=== PATIENT | female | born 1950 | race Caucasian/White ===

== ENCOUNTER 2018-06-14 22:08 | Emergency (ER) | payer BC ==
[2018-06-14] MEDS ORDERED: fentaNYL 100 MCG/2 ML INJ ONE (22:50)
[2018-06-14] MEDS ORDERED: fentaNYL 100 MCG/2 ML INJ NASAL ONE (22:55)
--- NOTE | 2018-06-14 23:05 | EDPHY ---
H & P Stated Complaint: LEFT WRIST, FALL WHILE DANCING - Personal History Current Tetanus/Diphtheria Vaccine: Yes - Medical/Surgical History Hx Asthma: Yes Hx Chronic Respiratory Disease: No Hx Diabetes: No Hx Cardiac Disease: No Hx Renal Disease: No Hx Cirrhosis: No Hx Alcoholism: No Hx HIV/AIDS: No Hx Splenectomy or Spleen Trauma: No Other PMH: MASTECTOMY/ BREAST CA, TUBAL LIG, CELIAC, COLLAR BONE FX, OSTEOPOROSIS - Social History Smoking Status: Never smoked Time Seen by Provider: 06/14/18 22:26 HPI/ROS: Chief complaint: Left wrist injury History of present illness: This is a 67-year-old female who presents to the emergency department for left wrist injury. She was dancing when she slipped and fell onto her wrist. Since then she has had pain, swelling and deformity to the wrist. She cannot move it secondary to pain. She is able to move the fingers although this causes pain. The rest the arm feels fine. She denies trauma to other parts of the body. No report of open wounds. No abnormal coolness or paresthesias. No other injuries reported. (Delvin Gordon) - Physical Exam Exam: General: Alert, nontoxic. Skin: No open wounds to the left upper extremity. Musculoskeletal: Obvious deformity to the left wrist. This area is tender to palpation. She can move the digits of the left hand although this causes pain. The rest of the left upper extremities unremarkable. Vascular: Radial pulse 2 +. Capillary refill brisk in all digits of the left hand. Neurologic: Sensation intact in the left hand. (Delvin Gordon) Constitutional: Initial Vital Signs Temperature (C) 36.7 C 06/14/18 22:12 Heart Rate 76 06/14/18 22:12 Respiratory Rate 18 06/14/18 22:12 Blood Pressure 115/68 06/14/18 22:12 O2 Sat (%) 97 06/14/18 22:12 O2 Delivery Mode Room Air Allergies/Adverse Reactions: aspirin Allergy (Verified 06/14/18 22:11) Penicillins Allergy (Verified 06/14/18 22:11) Home Medications: Medication Instructions Recorded Elderberry Fruit and Flower 06/14/18 Hydrocodone/APAP 5/325 [R[place] 1 tab PO Q6H #10 tab 06/15/18 5/325 (*)] Medical Decision Making - Diagnostics Imaging: I viewed and interpreted images myself Procedures: Procedure: Hematoma block Verbal permission was obtained from the patient after describing the risks and benefits. The area was prepped in the usual fashion in 10 cc of 1% lidocaine without epinephrine was instilled. Patient obtained good anesthesia. She tolerated the procedure well. No complications noted. Procedure: Fracture reduction. The wrist fracture was reduced in the usual fashion without complications. Post reduction the patient's neurovascular exam is normal. Post reduction x-ray demonstrates improvement but not ideal alignment The procedure was performed by myself. Procedure: Splint placement. A sugar-tong splint was applied. After application of the splint I returned and re-examined the patient. The splint was adequately immobilizing the joint and distal to the splint the patient's circulation and sensation was intact. ( Delvin Gordon) ED Course/Re-evaluation: Patient is seen under the supervision of my secondary supervising physician Dr. Nidia Mckeon. Patient presents after slipping and falling and injuring her left wrist. A fracture is noted. The hand is neurovascularly intact. A reduction is performed. The hand remains neurovascularly intact. I discussed with the patient that although alignment has improved and I believe she is appropriate for discharge home her alignment is still not ideal. When I attempted to reduce it the fracture continued to fall out of place, I do believe this is unstable and will not benefit from continued attempts at reduction. She will likely need surgery. She is discharged home. Home care is discussed including pain management. Return precautions are given. The patient voiced understanding and agreement with plan. (Delvin Gordon) PHYSICIAN DOCUMENTATION: The patient was evaluated and managed by the Physician Regional Geodetic Advisor. My co- signature indicates that I have reviewed this chart and I agree with the findings and plan of care as documented. I am the secondary supervising physician. (Nidia Mckeon) Differential Diagnosis: Included but not limited to contusion, sprain or strain, bony fracture, joint dislocation (Delvin Gordon) - Data Points Medications Given: Discontinued Medications Hydrocodone Bitart/Acetaminophen ([place] 5/325mg Prepack#6) 1 btl TAKEHOME EDNOW ONE Stop: 06/15/18 00:41 Last Admin: 06/15/18 00:53 Dose: 1 btl Hydrocodone Bitart/Acetaminophen ([place] 5/325) 1 tab PO EDNOW ONE Stop: 01/13/19 00:47 Last Admin: 06/15/18 00:53 Dose: 1 tab Fentanyl (Sublimaze) 100 mcg NASAL EDNOW ONE Stop: 06/14/18 22:56 Last Admin: 06/14/18 22:56 Dose: 100 mcg Ibuprofen (Motrin) 600 mg PO EDNOW ONE Stop: 06/15/18 00:47 Last Admin: 06/15/18 00:52 Dose: 600 mg Departure - Departure Disposition: Home, Routine, Self-Care Clinical Impression: Wrist fracture, left Condition: Good Instructions: Wrist Fracture in Adults (ED), Splint Care (ED) Additional Instructions: Follow-up with an orthopedic surgeon this week for continued evaluation and care You will likely need surgery to fix this fracture In regards to pain control see the following: Use ibuprofen 400 mg 3 times a day for the next 2-3 days for pain In addition You have been prescribed Riverview for pain. Riverview contains Tylenol, do not take extra Tylenol/acetaminophen/Apap with it. It is sedating. I also recommend use Colace your taking narcotics to avoid constipation If symptoms worsen or new symptoms develop return to the emergency department for recheck Referrals: NONE *PRIMARY CARE P,. [Primary Care Provider] - As per Instructions Raulito Stark MD [Medical Doctor] - As per Instructions Prescriptions: Hydrocodone/APAP 5/325 [[place] 5/325 (*)] 1 tab PO Q6H #10 tab
[2018-06-15 00:29] VITALS: BP 127/73
[2018-06-15] MEDS ORDERED: HYDROCOD/APAP 5/325 PREPACK#6 BTL TAKEHOME ONE (00:40)
[2018-06-15] MEDS ORDERED: IBUPROFEN 600 MG TAB PO ONE (00:46)
[2018-06-15] MEDS ORDERED: HYDROCODONE/APAP 5/325 TAB PO ONE (00:46)
== END 2018-06-15 01:03 | disposition home or self-care (01) ==
PROC: 0PSJXZZ Reposition Left Radius, External Approach (ICD-10-PCS; principal; 2018-06-14)
DX: S52.502A Unspecified fracture of the lower end of left radius, initial encounter for closed fracture (principal); W01.0XXA Fall on same level from slipping, tripping and stumbling without subsequent striking against object, initial encounter; Y93.41 Activity, dancing; Y92.9 Unspecified place or not applicable; Y99.9 Unspecified external cause status
CPT/HCPCS: 96374; A4565; J3010